=== PATIENT | male | born 1980 | race Caucasian/White ===

== ENCOUNTER 2020-07-14 11:26 | Outpatient (CLI) | payer BC, SELFPAY ==
--- NOTE | ~2020-07-14 | XR_ITS ---
EXAMINATION: XR clavicle BI DATE: 07/14/2020 11:45 INDICATION: Unspecified fall, initial encounter. TECHNIQUE: 2 views of right clavicle and 2 views of left clavicle were obtained. COMPARISON: None. FINDINGS: Bone alignment is normal. The coracoclavicular intervals are normal. No fracture. Joint [facility] are well maintained. IMPRESSION: 1. Normal clavicles. Reviewed, dictated and finalized at location A. DESK INTERN IMPRESSION: 1. Normal clavicles.
--- NOTE | ~2020-07-14 | XR_ITS ---
EXAMINATION: XR_CERV2-3V_CR DATE: 07/14/2020 11:45 INDICATION: Neck pain. TECHNIQUE: 3 views of cervical spine were obtained. COMPARISON: None. FINDINGS: There is 11 degrees dextroscoliosis of cervicothoracic spine and 4 degrees levocurvature of cervical spine. Vertebral body heights and intervertebral disc heights are normal. 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 No central canal stenosis or prevertebral so ft tissue swelling. IMPRESSION: 1. Scoliosis. 2. Mild cervical spondylosis. Reviewed, dictated and finalized at location A. MENDER
== END 2020-07-14 11:27 | disposition home or self-care (01) ==
PROVIDERS: PCP Family Medicine; Visit Provider Family Medicine
DX: M25.512 Pain in left shoulder (principal); M89.8X1 Other specified disorders of bone, shoulder; M41.9 Scoliosis, unspecified; M47.892 Other spondylosis, cervical region
CPT/HCPCS: 72040; 73000

== ENCOUNTER 2023-07-10 09:00 | Outpatient (CLI) | payer BC, SELFPAY ==
--- NOTE | ~2023-07-10 | XR_ITS ---
EXAMINATION: XR chest 2V 07/10/2023 09:19 INDICATION: Chest pain PROCEDURE: 2 view chest COMPARISON: No prior studies for comparison. FINDINGS: The lungs are clear. The cardiomediastinal silhouette is within normal limits. There are no pleural effusions. There is no pneumothorax suspected. IMPRESSION: 1: NO ACUTE CARDIOPULMONARY DISEASE. Reviewed, dictated and finalized at location B. NET MOUNTER
--- NOTE | ~2023-07-10 | XR_ITS ---
XR knee RT 3V 07/10/2023 09:19 INDICATION: Right knee pain PROCEDURE: 3 views right COMPARISON: No prior studies for comparison. FINDINGS: Fracture, dislocation or subluxation is not identified. The soft tissues appear within norm al limits. No foreign bodies are identified. IMPRESSION: 1: NO ACUTE BONE OR JOINT ABNORMALITY IDENTIFIED. Reviewed, dictated and finalized at location B. ICAL PROFESSOR
[2023-07-10 18:48] LABS: Hematocrit 45.1 % (42.0-52.0); Hemoglobin 14.6 g/dL (14.0-18.0); Mean Corpuscular HGB Conc 32.4 g/dl (32-36); Mean Corpuscular Hemoglobin 30.5 pg (26-34); Mean Corpuscular Volume 94.4 fl (80-100); Mean Platelet Volume 10.3 fl (7.4-10.4); Platelet Count Result 255 k/mm3 (150-375); Red Blood Count 4.78 M/mm3 (4.6-6.20); Red Cell Distribution Width 13.2 % (11.5-14.5); White Blood Count 8.9 K/mm3 (4.5-10.0)
[2023-07-10 19:41] LABS: Alanine Aminotransferase 52 U/L (6-50); Albumin Level 4.2 g/dL (3.5-5.1); Alkaline Phosphatase 67 U/L (38-126); Anion Gap 4 mmol/L (8-16); Aspartate Amino Transferase 87 U/L (17-59); Bilirubin,Total 0.3 mg/dL (0.2-1.3); Blood Urea Nitrogen 13 mg/dL (9-20); Calcium 9.3 mg/dL (8.4-10.2); Carbon Dioxide 32 mmol/L (22-30); Chloride 104 mmol/L (98-107); Cholesterol 234 mg/dL (0-200); Estimated Glomerular Filt Rate > 60; Glucose 88 mg/dL (65-110); HDL Direct 43 mg/dL; Potassium 4.4 mmol/L (3.4-5.0); Sodium 140 mmol/L (137-145); Triglycerides 113 mg/dL (<150)
[2023-07-10 19:56] LABS: LDL Cholesterol Direct 160 mg/dL
[2023-07-10 20:11] LABS: Thyroid Stimulating Hormone 0.871 uIU/mL (0.465-4.680)
[2023-07-10 20:47] LABS: Folic Acid 6.7 ng/mL (2.76->20)
== END 2023-07-10 09:01 | disposition home or self-care (01) ==
LOC: ANHBWCLAB 09:03
PROVIDERS: PCP Nurse Practitioner Adult Health; Visit Provider Nurse Practitioner Adult Health
DX: R07.89 Other chest pain (principal); M25.561 Pain in right knee; F10.21 Alcohol dependence, in remission; Z13.9 Encounter for screening, unspecified; Z72.0 Tobacco use
CPT/HCPCS: 36415; 71046; 73562; 80048; 80061; 80076; 82607; 82746; 84443; 85027